=== PATIENT | female | born 2000 ===

== ENCOUNTER 2021-11-09 18:00 | Inpatient (IN) | payer MEDICAID ==
[~2021-11-09] VITALS: Ht 160 cm; Wt 63.0 kg
[2021-11-09] MEDS ORDERED: LIDOCAINE 1% INJ 20 ML VIAL IJ PRN (18:15)
[2021-11-09] MEDS ORDERED: MINERAL OIL 30 ML UDC TOP PRN (18:15)
[2021-11-09 18:38] LABS: BASOPHILS % (AUTO) 0 % (0-10); EOSINOPHILS # (AUTO) 0.1 10^3/uL (0.0-0.3); EOSINOPHILS % (AUTO) 0 % (0-10); HEMATOCRIT 39 % (35-52); LYMPHOCYTES # (AUTO) 2.8 10^3/uL (1.0-4.0); LYMPHOCYTES % (AUTO) 23 % (12-44); MEAN CORPUSCULAR HEMOGLOBIN 30 pg (25-34); MEAN CORPUSCULAR HGB CONC 34 g/dL (32-36); MEAN CORPUSCULAR VOLUME 90 fL (80-99); MEAN PLATELET VOLUME 10.4 fL (9.0-12.2); MONOCYTES % (AUTO) 8 % (0-12); NEUTROPHILS # (AUTO) 8.3 10^3/uL (1.8-7.8); NEUTROPHILS % (AUTO) 68 % (42-75); PLATELET COUNT 251 10^3/uL (130-400); WHITE BLOOD COUNT 12.2 10^3/uL (4.3-11.0)
[2021-11-09] MEDS ORDERED: MV-M1TAB66 PO (19:12)
[2021-11-09] MEDS ORDERED: FAMO-119 PO (19:13)
[2021-11-09] MEDS: D5 LR IV SOLUTION 1,000 ML IV SCH ×2 (20:25→21:45)
[2021-11-09 20:35] VITALS: BP 109/59
[2021-11-09 21:35] VITALS: BP 115/63
[2021-11-09] MEDS ORDERED: LACTATED RINGERS 1,000 ML IV SCH (22:15)
[2021-11-09] MEDS: CATHETER FLUSH 10 ML SYR IV SCH (22:24)
[2021-11-09 22:35] VITALS: BP 113/57
[2021-11-10] VITALS (54 sets, daily range): BP systolic 94–138; BP diastolic 52–80
[2021-11-10] MEDS ORDERED: ACETAMINOPHEN 500 MG TAB (TYLENOL) ONE (00:41)
[2021-11-10] MEDS ORDERED: ACETAMINOPHEN 500 MG TAB (TYLENOL) PO ONE (00:45)
--- NOTE | 2021-11-10 04:28 | History & Physical-OB ---
OB - Chief Complaint & HPI Date/Time Date of Admission: Date of Admission: Nov 09, 2021 at 18:00 Date seen by a Provider: Nov 10, 2021 Time Seen by a Provider: 06:10 Chief Complaint/History OB-Reason for Admission/Chief: Induction of Labor Hx : 2 Hx Para: 0 Expected Date of Delivery: Nov 06, 2021 Gestational Age in Weeks: 40 Gestational Age in Days: 3 History of Labs O+, Ab neg, Rub Imm HIV/HepB/C/RPR NR normal 1 hr GTT GBS neg Allergies and Home Medications Allergies Coded Allergies: No Known Drug Allergies (Unverified , 11/09/21) Patient Home Medication List Home Medication List Reviewed: Yes Famotidine (Pepcid) 20 Mg Tablet, 20 MG PO HS, (Reported) Entered as Reported by: HEIDY COSTA on 11/09/211912 Last Action: New Order Mv-Mn/Iron/FA/Herbal/Digestive ( One Tablet) 27 Mg Iron-360 Mcg-125 Mg- 32 Mg Tablet, 1 EACH PO DAILY, (Reported) Entered as Reported by: HEIDY COSTA on 11/09/211911 Last Action: New Order OB - History Hx of Present Care: Yes Ultrasounds: Normal mid trimester US Obstetrical Complications: None Medical Complications: None Obstetrical History Hx : 2 Hx Para: 0 Hx Total # of Abortions (Spona: 1 Patient Past Medical History Reflux during prengnacy Social History/Family History Alcohol Use: Denies Use Smoking Cessation: Never smoker Immunizations Tetanus Booster (TDap): Less than 5yrs (08/24/21) Rubella: immune RPR/VDRL: Negative GBS Status: Negative HBsAG: Negative OB - Admission Exam Physical Exam Vitals: Vital Signs 11/09/21 11/09/21 11/10/21 20:35 21:35 03:00 Temp 36.6 Pulse 68 Resp 18 B/P (MAP) 114/67 (83) Pulse Ox 99 O2 Delivery Room Air HEENT: NCAT Heart: Rhythm Normal Lungs: Clear Abdomen: Gravid Cervical Dilatation: 3cm Effacement: 75% Station: -2 Membranes: Intact Accelerations: Accelerations Present Decelerations: No Decelerations Short Term Variability: Present Doctor Of Radiology Variability: Average (6-25) Contractions on Admission: 6-10 Minutes Apart Lowry Scoring Tool (Modified) Dilation (cm): 1-2cm (1) Effacement (%): 51-79% (2) Descent/Station: -2 (1) Cervix Consistency: Medium(1) Cervix Position: Anterior (2) Lowry Score: 7 Labs Laboratory Tests Test 11/09/21 18:25 Range/Units White Blood Count 12.2 H 4.3-11.0 10^3/uL Red Blood Count 4.28 3.80-5.11 10^6/uL Hemoglobin 13.0 11.5-16.0 g/dL Hematocrit 39 35-52 % Mean Corpuscular Volume 90 80-99 fL Mean Corpuscular Hemoglobin 30 25-34 pg Mean Corpuscular Hemoglobin Concent 34 32-36 g/dL Red Cell Distribution Width 13.2 10.0-14.5 % Platelet Count 251 130-400 10^3/uL Mean Platelet Volume 10.4 9.0-12.2 fL Immature Granulocyte % (Auto) 1 % Neutrophils (%) (Auto) 68 42-75 % Lymphocytes (%) (Auto) 23 12-44 % Monocytes (%) (Auto) 8 0-12 % Eosinophils (%) (Auto) 0 0-10 % Basophils (%) (Auto) 0 0-10 % Neutrophils # (Auto) 8.3 H 1.8-7.8 10^3/uL Lymphocytes # (Auto) 2.8 1.0-4.0 10^3/uL Monocytes # (Auto) 1.0 0.0-1.0 10^3/uL Eosinophils # (Auto) 0.1 0.0-0.3 10^3/uL Basophils # (Auto) 0.0 0.0-0.1 10^3/uL Immature Granulocyte # (Auto) 0.1 0.0-0.1 10^3/uL OB - Assessment/Plan/Diagnosis Assessment Assessment: induction of labor Admission Dx Third Trimester 40 week gestation Admission Status: Inpatient Order (span 2 midnights) Reason for Inpatient Admission: Labor and post care Plan Plan: Induction Other Plan 21 yo @ 40.3 wga her for IOL Plan - Cytotec protocol - Unsure about epidural at this time, ok for IV pain medications - GBS neg - Expectant management KENAN SAAVEDRA MD Nov 10, 2021 04:28
[2021-11-10] MEDS: D5 LR IV SOLUTION 1,000 ML IV SCH (05:43)
[2021-11-10] MEDS ORDERED: OXYTOCIN PRE-MIX DRIP 500 ML IV SCH (06:30)
[2021-11-10] MEDS: CATHETER FLUSH 10 ML SYR IV SCH ×2 (06:34→15:30)
[2021-11-10] MEDS ORDERED: fentaNYL 2 mcg/ml BUPIVA 0.125 100 ML ONE (07:30)
[2021-11-10] MEDS ORDERED: LACTATED RINGERS 1,000 ML IV SCH (08:30)
[2021-11-10] MEDS ORDERED: diphenhydrAMINE 50 MG/ML INJ (BENADRYL) IV PRN (08:30)
[2021-11-10] MEDS ORDERED: NALOXONE 0.4 MG/ML 1 ML (NARCAN) VIAL IV PRN ×2 (08:30)
[2021-11-10] MEDS ORDERED: ONDANSETRON 4 MG/2 ML (SDV) Z0FRAN IV PRN (08:30)
[2021-11-10] MEDS ORDERED: METOCLOPRAMIDE INJ 10 MG/2 ML (REGLAN) IV PRN (08:30)
[2021-11-10] MEDS ORDERED: fentaNYL 2 mcg/ml BUPIVA 0.125 100 ML EPI SCH (08:30)
[2021-11-10] MEDS: OXYTOCIN PRE-MIX DRIP 500 ML IV SCH ×2 (12:33→13:09)
[2021-11-10] MEDS ORDERED: WITCH HAZEL(TUCKS) 40 EA JAR TOP PRN (13:15)
[2021-11-10] MEDS ORDERED: BENZOCAINE/MENTHOL (DERMOPLAST) 56 ML CAN TP PRN (13:15)
--- NOTE | 2021-11-10 13:16 | OB Labor & Delivery Record ---
Vag Delivery Note Vag Delivery Note Date of Delivery: 11/10/21 Preoperative Diagnosis: Hilary Otoole is a (21 /Para 2/ 0,Gestational Age (wks)40.4 here for IOL Postoperative Diagnosis: Same Surgeon: KENAN SAAVEDRA MD Forensic Psychologist: None Anesthesia: epidural Delivery Type: @ 1228 Findings: Viable female infant, apgars 8/9, weight 7#7, 3080 grams Lacerations: bilateral vaginal wall lacerations with 2nd degree perineal Intact placenta with 3 vessel cord. No nuchal cord, body cord or shoulder dystocia Estimated Blood Loss: 200 ml Complications: None Condition: Stable Description of Procedure: The patient is a 21 year old female who presented for IOL. She was admitted and informed consent was obtained. Her labor course was unremarkable. She progressed to complete dilatation and began to push. She was then set up for delivery. The 's head was delivered atraumatically in the MAGDALENA position after low outlet vaccum extraction. heart tones in the 70s and vaccum was applied @ 1227 and used thru 1 push and head was delivered at 1228. The shoulders and remainder of the 's body were then delivered without difficulty as I was unable to reduce nuchal x1 at the perinium. Upon delivery, the head was held below the level of the perineum and the mouth and nares were bulb suctioned. The cord was doubly clamped and cut by FOB after 2 min delay and the infant was attended to by the pediatric staff on maternal abdomen. An intact placenta with 3-vessel cord delivered via Kayla and there was found to be minimal bleeding.~ Vigorous fundal massage was performed and the fundus was found to be firm. IV oxytocin was given. Examination of the vagina and perineum revealed bilateral vaginal wall lacerations and 2nd degree perineal repaired in the usual fashion with 3-0 vicryl suture. Following the repair, sponge, instrument and needle counts were correct. Mom and baby were both in stable condition in the labor suite. Vitals - Labs Vital Signs - I&O Vital Signs Date Time Temp Pulse Resp B/P (MAP) Pulse Ox O2 Delivery O2 Flow Rate FiO2 11/10/21 09:30 36.5 73 18 111/65 (80) 98 Room Air 11/10/21 09:15 61 18 98 Room Air 11/10/21 09:10 69 18 114/61 (78) 98 Room Air 11/10/21 09:05 80 18 131/70 (90) 98 Room Air 11/10/21 09:00 68 18 112/63 (79) 98 Room Air 11/10/21 08:55 73 18 111/61 (78) 97 Room Air 11/10/21 08:50 67 18 110/66 (81) 97 Room Air 11/10/21 08:45 59 18 109/62 (78) 98 Room Air 11/10/21 08:39 85 18 115/67 (83) 99 Room Air 11/10/21 08:36 79 18 116/71 (86) 97 Room Air 11/10/21 08:33 57 18 116/65 (82) 97 Room Air 11/10/21 08:30 62 18 120/62 (81) 98 Room Air 11/10/21 08:26 118 18 104/67 (79) 97 Room Air 11/10/21 08:23 71 18 114/69 (84) 97 Room Air 11/10/21 08:20 86 18 113/73 (86) 98 Room Air 11/10/21 08:17 80 18 127/73 (91) 97 Room Air 11/10/21 08:15 76 18 122/67 (85) 97 Room Air 11/10/21 08:10 78 18 125/56 (79) 97 Room Air 11/10/21 08:05 74 18 115/57 (76) 96 Room Air 11/10/21 08:00 84 18 120/66 (84) 96 Room Air 11/10/21 07:51 80 18 122/60 (80) Room Air 11/10/21 07:45 80 18 122/60 (80) Room Air 11/10/21 07:30 83 18 120/62 (81) Room Air 11/10/21 07:15 36.5 71 18 107/61 (76) Room Air 11/10/21 07:00 83 18 118/68 (85) Room Air 11/10/21 06:00 35.7 58 18 96/52 (67) Room Air 11/10/21 05:00 58 18 94/52 (66) Room Air 11/10/21 04:00 67 18 108/59 (75) Room Air 11/10/21 03:00 68 18 114/67 (83) Room Air 11/10/21 02:00 69 18 111/69 (83) Room Air 11/10/21 01:00 79 18 114/73 (87) Room Air 11/10/21 00:00 68 18 107/61 (76) Room Air 11/09/21 22:35 81 18 113/57 (75) Room Air 11/09/21 21:35 83 18 115/63 (80) 99 Room Air 11/09/21 20:35 36.6 84 18 109/59 (76) Room Air I & O 11/10/21 07:00 Intake Total 3000 ml Balance 3000 ml Labs Laboratory Tests 11/09/21 18:25: White Blood Count 12.2H, Red Blood Count 4.28, Hemoglobin 13.0, Hematocrit 39, Mean Corpuscular Volume 90, Mean Corpuscular Hemoglobin 30, Mean Corpuscular Hemoglobin Concent 34, Red Cell Distribution Width 13.2, Platelet Count 251, Mean Platelet Volume 10.4, Immature Granulocyte % (Auto) 1, Neutrophils (%) ( Auto) 68, Lymphocytes (%) (Auto) 23, Monocytes (%) (Auto) 8, Eosinophils (%) (Auto) 0, Basophils (%) (Auto) 0, Neutrophils # (Auto) 8.3H, Lymphocytes # (Auto) 2.8, Monocytes # (Auto) 1.0, Eosinophils # (Auto) 0.1, Basophils # (Auto) 0.0, Immature Granulocyte # (Auto) 0.1 KENAN SAAVEDRA MD Nov 10, 2021 13:16
[2021-11-10] MEDS ORDERED: CATHETER FLUSH 10 ML SYR IV SCH (14:00)
[2021-11-10] MEDS: IBUPROFEN 600 MG (MOTRIN) TAB PO SCH ×2 (15:21→20:26)
[2021-11-10] MEDS: ACETAMINOPHEN 500 MG TAB (TYLENOL) PO SCH ×2 (15:21→20:27)
[2021-11-10] MEDS: DOCUSATE SODIUM 100 MG (COLACE) CAP PO SCH (20:27)
[2021-11-10] MEDS ORDERED: IBUP-844 PO (21:12)
[2021-11-10] MEDS ORDERED: DOCU100C37 PO (21:12)
[2021-11-11] MEDS: ACETAMINOPHEN 500 MG TAB (TYLENOL) PO SCH ×4 (01:36→21:36)
[2021-11-11] MEDS: IBUPROFEN 600 MG (MOTRIN) TAB PO SCH ×4 (01:37→21:36)
[2021-11-11 04:20] VITALS: BP 96/50
[2021-11-11 05:30] LABS: BASOPHILS % (AUTO) 0 % (0-10); EOSINOPHILS # (AUTO) 0.1 10^3/uL (0.0-0.3); EOSINOPHILS % (AUTO) 1 % (0-10); HEMATOCRIT 31 % (35-52); LYMPHOCYTES # (AUTO) 2.7 10^3/uL (1.0-4.0); LYMPHOCYTES % (AUTO) 20 % (12-44); MEAN CORPUSCULAR HGB CONC 32 g/dL (32-36); MEAN CORPUSCULAR VOLUME 92 fL (80-99); MEAN PLATELET VOLUME 10.4 fL (9.0-12.2); MONOCYTES # (AUTO) 1.1 10^3/uL (0.0-1.0); MONOCYTES % (AUTO) 8 % (0-12); NEUTROPHILS # (AUTO) 9.8 10^3/uL (1.8-7.8); NEUTROPHILS % (AUTO) 71 % (42-75); PLATELET COUNT 190 10^3/uL (130-400); WHITE BLOOD COUNT 13.8 10^3/uL (4.3-11.0)
[2021-11-11 05:33] LABS: MEAN CORPUSCULAR HEMOGLOBIN 29 pg (25-34)
[2021-11-11] MEDS ORDERED: FERR325T24 PO (06:52)
[2021-11-11] MEDS: DOCUSATE SODIUM 100 MG (COLACE) CAP PO SCH ×2 (09:19→21:36)
[2021-11-11] MEDS: FERROUS SULF 325 MG (IRON) TAB PO SCH (09:19)
[2021-11-11 09:35] VITALS: BP 108/58
--- NOTE | 2021-11-11 11:36 | Anesthesia-Regional Post-Op ---
Regional Patient Condition Mental Status: Alert, Oriented x3 Circulation: Same as Pre-Op Headache: Absent Sensation: Full Recovery Motor Block: Absent Post Op Complications Complications None Follow Up Care/Instructions Patient Instructions None needed. Anesthesia/Patient Condition Patient is doing well, no complaints, stable vital signs, no apparent adverse anesthesia problems. No complications reported per nursing. PAULA PYLE CRNA Nov 11, 2021 11:36
[2021-11-11 15:00] VITALS: BP 108/52
--- NOTE | 2021-11-11 15:05 | Progress Note ---
Subjective Subjective/Events-last exam Afebrile, denies chest pain, shortness of breath, dizziness. Reports bleeding is minimal. Still having fairly marked perineal/vulvovaginal swelling. Objective Exam Last Set of Vital Signs Vital Signs Date Time Temp Pulse Resp B/P (MAP) Pulse Ox O2 Delivery O2 Flow Rate FiO2 11/11/21 09:35 36.4 82 18 108/58 (75) 97 Room Air 11/10/21 12:15 15.00 Capillary Refill : I&O Intake and Output 11/10/21 23:59 Intake Total 5000 ml Balance 5000 ml Intake Oral 500 ml IV Total 4500 ml # Voids 1 General: Alert, No Acute Distress Lungs: Clear to Auscultation, Normal Air Movement Heart: Regular Rate, No Murmurs Abdomen: Other (fundus firm below umbilicus) Extremities: No Edema Neuro: Normal Speech Psych/Mental Status: Mood NL Results/Procedures Lab Laboratory Tests 11/11/21 05:18: White Blood Count 13.8H, Red Blood Count 3.39L, Hemoglobin 10.0#L, Hematocrit 31L, Mean Corpuscular Volume 92, Mean Corpuscular Hemoglobin 29, Mean Corpuscular Hemoglobin Concent 32, Red Cell Distribution Width 13.5, Platelet Count 190, Mean Platelet Volume 10.4, Immature Granulocyte % (Auto) 0, Neutrophils (%) (Auto) 71, Lymphocytes (%) (Auto) 20, Monocytes (%) (Auto) 8, Eosinophils (%) (Auto) 1, Basophils (%) (Auto) 0, Neutrophils # (Auto) 9.8H, Lymphocytes # (Auto) 2.7, Monocytes # (Auto) 1.1H, Eosinophils # (Auto) 0.1, Basophils # (Auto) 0.0, Immature Granulocyte # (Auto) 0.1 Assessment/Plan Assessment/Plan (1) Status post vacuum-assisted vaginal delivery Status: Acute Assessment & Plan: Routine care (2) anemia Status: Acute Assessment & Plan: Acute blood loss anemia. Asymptomatic, start ferrous sulfate daily EPHRAIM HERNANDEZ MD Nov 11, 2021 15:04
[2021-11-11 21:35] VITALS: BP 109/58
[2021-11-12] MEDS: IBUPROFEN 600 MG (MOTRIN) TAB PO SCH ×2 (03:14→08:54)
[2021-11-12] MEDS: ACETAMINOPHEN 500 MG TAB (TYLENOL) PO SCH ×2 (03:15→08:54)
[2021-11-12 03:16] VITALS: BP 96/53
--- NOTE | 2021-11-12 06:41 | Discharge Summary ---
Discharge Summary Hospital Course Problems/Diagnosis: (1) Status post vacuum-assisted vaginal delivery Status: Acute Assessment & Plan: Routine care (2) anemia Status: Acute Assessment & Plan: Acute blood loss anemia. Asymptomatic, start ferrous sulfate daily Hospital Course Date of Admission: Nov 09, 2021 at 18:00 Admission Diagnosis : Family Physician/Provider: Bessie Denton MD Date of Discharge: 11/12/21 Discharge Diagnosis: See problem list Hospital Course: Pt admitted for induction of labor approaching postdates, had vacuum assisted vaginal delivery and uncomplicated course. Labs and Pending Lab Test: Home Meds Active Ferosul (Ferrous Sulfate) 325 Mg (65 Mg Iron) Tablet 325 Mg PO DAILY@0700 Docusate Sodium 100 Mg Capsule 100 Mg PO BID Ibu (Ibuprofen) 600 Mg Tablet 600 Mg PO Q6H Reported Pepcid (Famotidine) 20 Mg Tablet 20 Mg PO HS One Tablet (Mv-Mn/Iron/FA/Herbal/Digestive) 27 Mg Iron-360 Mcg-125 Mg- 32 Mg Tablet 1 Each PO DAILY Assessment/Pt DC Instructions Follow up with Dr. Denton in 6 weeks. Discharge Diet: No Restrictions Activity as Tolerated: Yes (avoid strenuous activity x 6 weeks) Discharge Physical Examination Allergies: Coded Allergies: No Known Drug Allergies (Unverified , 11/09/21) General Appearance: No Apparent Distress, WD/WN Respiratory: Lungs Clear, Normal Breath Sounds Cardiovascular: Regular Rate, Rhythm, No Murmur Extremity: No Pedal Edema Skin: Normal Color, Warm/Dry Neurologic/Psychiatric: Alert, Normal Mood/Affect EPHRAIM HERNANDEZ MD Nov 12, 2021 06:41
[2021-11-12 08:10] VITALS: BP 114/57
[2021-11-12] MEDS: FERROUS SULF 325 MG (IRON) TAB PO SCH (08:54)
[2021-11-12] MEDS: DOCUSATE SODIUM 100 MG (COLACE) CAP PO SCH (08:54)
[2021-11-12 09:57] VITALS: BP 114/57
== END 2021-11-12 09:57 | disposition home or self-care (01) | DRG 806 ==
LOC: LDRP 18:00
PROVIDERS: ADMIT Family Medicine; ATTEND Family Medicine
PROC: 10D07Z6 Extraction of Products of Conception, Vacuum, Via Natural or Artificial Opening (ICD-10-PCS; principal; 2021-11-10)
PROC: 0KQM0ZZ Repair Perineum Muscle, Open Approach (ICD-10-PCS; 2021-11-10)
DX: O48.0 Post-term pregnancy (principal); D62 Acute posthemorrhagic anemia; Z37.0 Single live birth; Z3A.40 40 weeks gestation of pregnancy; O70.1 Second degree perineal laceration during delivery; O69.81X0 Labor and delivery complicated by cord around neck, without compression, not applicable or unspecified; O90.81 Anemia of the puerperium
CPT/HCPCS: 36415; 85025; 86780; 86850; 86900; 86901